=== PATIENT | male | born 1975 | race Caucasian/White ===

== ENCOUNTER 2017-04-26 00:19 | Emergency (ER) | payer SELFPAY ==
[~2017-04-26] VITALS: Ht 157.5 cm; Wt 66.0 kg
[2017-04-26 00:23] VITALS: Ht 157.5 cm; Wt 66.0 kg
== END 2017-04-26 00:42 | disposition left against medical advice (07) ==
LOC: E/R 00:19
DX: Z53.21 Procedure and treatment not carried out due to patient leaving prior to being seen by health care provider (principal)

== ENCOUNTER 2017-04-26 14:01 | Inpatient (IN) | payer MEDICAID ==
[~2017-04-26] VITALS: Ht 157.5 cm; Wt 63.9 kg
[2017-04-26] MEDS ORDERED: SOD CHLORIDE 0.9% 1,000 ML IV STA (14:36)
[2017-04-26] MEDS ORDERED: morphine 4 MG/ML VIAL IV STA (14:36)
[2017-04-26] MEDS ORDERED: ONDANSETRON 4 MG INJ IV STA (14:36)
[2017-04-26] MEDS ORDERED: LORAZEPAM 2 MG INJ IV ONE (15:00)
[2017-04-26 15:26] LABS: ADD SCAN DIFF NO
[2017-04-26 15:30] LABS: ABNORMAL IP MESSAGE 1; BASOPHIL # 0.1 10^3/ul (0.0-0.1); BASOPHILS % 1.5 % (0.0-2.0); EOSINOPHILS % 0.9 % (0.0-7.0); HEMATOCRIT 36.9 % (42.0-52.0); HEMOGLOBIN 12.5 g/dl (14.0-18.0); LYMPHOCYTES # 0.6 10^3/ul (0.8-2.9); LYMPHOCYTES % 17.4 % (15.0-51.0); MEAN CORPUSCULAR HEMOGLOBIN 29.3 pg (29.0-33.0); MEAN CORPUSCULAR HGB CONC 33.9 g/dl (32.0-37.0); MEAN CORPUSCULAR VOLUME 86.4 fl (82.0-101.0); MEAN PLATELET VOLUME 8.8 fl (7.4-10.4); MONOCYTE # 0.3 10^3/ul (0.3-0.9); MONOCYTES % 10.4 % (0.0-11.0); NEUTROPHIL # 2.3 10^3/ul (1.6-7.5); NEUTROPHILS % 69.5 % (39.0-77.0); PLATELET COUNT 131 10^3/UL (140-415); RED BLOOD COUNT 4.27 10^6/ul (4.70-6.10); WHITE BLOOD COUNT 3.3 10^3/ul (4.8-10.8)
[2017-04-26 15:49] LABS: ALBUMIN 5.2 g/dl (3.3-4.9); ALBUMIN/GLOBULIN RATIO 1.85; BILIRUBIN,INDIRECT 0.8 mg/dl (0-1.1); BILIRUBIN,TOTAL 0.8 mg/dl (0.2-1.3); CREATININE 0.69 mg/dl (0.61-1.24); POTASSIUM 3.8 mmol/L (3.5-5.1)
[2017-04-26] MEDS ORDERED: SOD CHLORIDE 0.9% 1,000 ML IV SCH (18:54)
[2017-04-26] MEDS ORDERED: ACETAMINOPHEN 325 MG TAB PO PRN ×2 (19:00→23:00)
[2017-04-26] MEDS ORDERED: ONDANSETRON 4 MG INJ IV PRN (19:00)
--- NOTE | 2017-04-26 19:02 | ERA ---
ER Documentation Chief Complaint Date/Time DATE: 04/26/17 TIME: 18:59 Chief Complaint etoh withdrawal, vomiting, shakes, last drink yesterda HPI Is a 41-year-old alcoholic male who is complaining of binge drinking hard for 3 weeks. The patient states that he began having nausea vomiting this morning. With pain in the epigastric region with some radiation to the back. He says he has not vomiting any bile or blood in the having the chest pain shortness of breath no fever having no diarrhea. ROS All systems reviewed and are negative except as per history of present illness. Medications Home Meds No Active Prescriptions or Reported Meds Allergies Allergies: Coded Allergies: No Known Allergy (Unverified , 04/26/17) PMhx/Soc History of Surgery: No Anesthesia Reaction: No Hx Neurological Disorder: No Hx Respiratory Disorders: No Hx Cardiac Disorders: Yes (HTN) Hx Psychiatric Problems: No Hx Miscellaneous Medical Probl: Yes (ETOH) Hx Alcohol Use: Yes Hx Substance Use: No Hx Tobacco Use: No Smoking Status: Never smoker FmHx Family History: No coronary disease Physical Exam Vitals Vital Signs Date Time Temp Pulse Resp B/P Pulse Ox O2 Delivery O2 Flow Rate FiO2 04/26/17 18:55 92 16 113/82 99 Room Air 04/26/17 17:15 70 12 121/82 99 Room Air 04/26/17 15:49 79 12 122/82 97 Room Air 04/26/17 14:03 98.1 137 18 134/76 99 Physical Exam Const: [Well-developed, well-nourished] Head: [Atraumatic, normocephalic] Eyes: [Normal Conjunctiva, PERRLA, EOMI, normal sclera, no nystagmus] ENT: [Normal External Ears, Nose and Mouth, moist mucus membranes.] Neck: [Full range of motion. No meningismus, no lymphadenopathy.] Resp: [Clear to auscultation bilaterally, no wheezing, rhonchi, rales] Cardio: [Tachycardia no murmurs, S1 S2 present] Abd: [Soft, mild to moderate epigastric tenderness, non distended. Normal bowel sounds, no guarding or rebound, no pulsitile abdominal masses or bruits] Skin: [No petechiae or rashes, no ecchymosis , no maculopapular rash] Back: [No midline or flank tenderness] Ext: [No cyanosis, or edema, FROM x 4, normal inspection, neurovascularly intact x 4] Neur: [Awake and alert, STR 5/5 x 4, sensation intact x 4, no focal findings, cerebellum intact, no tremors or signs of alcohol withdrawal] Psych: [Normal Mood and Affect] Result Diagram: 04/26/17 1445 04/26/17 1445 Results 24 hrs Laboratory Tests Test 04/26/17 14:45 White Blood Count 3.310^3/ul Red Blood Count 4.2710^6/ul Hemoglobin 12.5g/dl Hematocrit 36.9% Mean Corpuscular Volume 86.4fl Mean Corpuscular Hemoglobin 29.3pg Mean Corpuscular Hemoglobin Concent 33.9g/dl Red Cell Distribution Width 16.0% Platelet Count 28849^3/UL Mean Platelet Volume 8.8fl Neutrophils % 69.5% Lymphocytes % 17.4% Monocytes % 10.4% Eosinophils % 0.9% Basophils % 1.5% Nucleated Red Blood Cells % 0.0/100WBC Neutrophils # 2.310^3/ul Lymphocytes # 0.610^3/ul Monocytes # 0.310^3/ul Eosinophils # 0.010^3/ul Basophils # 0.110^3/ul Nucleated Red Blood Cells # 0.010^3/ul Sodium Level 144mmol/L Potassium Level 3.8mmol/L Chloride Level 101mmol/L Carbon Dioxide Level 23mmol/L Anion Gap 24 Blood Urea Nitrogen 8mg/dl Creatinine 0.69mg/dl Glucose Level 102mg/dl Calcium Level 9.0mg/dl Total Bilirubin 0.8mg/dl Direct Bilirubin 0.00mg/dl Indirect Bilirubin 0.8mg/dl Aspartate Amino Transf (AST/SGOT) 320IU/L Alanine Aminotransferase (ALT/SGPT) 177IU/L Alkaline Phosphatase 89IU/L Total Protein 8.0g/dl Albumin 5.2g/dl Globulin 2.80g/dl Albumin/Globulin Ratio 1.85 Lipase 1012U/L Ethyl Alcohol Level 193.0mg/dl Current Medications Medications (Trade) Dose Ordered Sig/Luisito Route PRN Reason Start Time Stop Time Status Last Admin Dose Admin Sodium Chloride (NS) 1,000 ml @ 1,000 mls/hr Q1H STAT IV 04/26/17 14:36 04/26/17 15:35 DC 04/26/17 15:03 Morphine Sulfate (morphine) 4 mg ONCE STAT IV 04/26/17 14:36 04/26/17 14:38 DC 04/26/17 15:03 Ondansetron HCl (Zofran Inj) 4 mg ONCE STAT IV 04/26/17 14:36 04/26/17 14:38 DC 04/26/17 15:04 Lorazepam 1 mg 1 mg ONCE ONCE IV 04/26/17 15:00 04/26/17 15:01 DC 04/26/17 15:03 Sodium Chloride (NS) 1,000 ml @ 80 mls/hr [id number] IV 04/26/17 18:54 04/27/17 07:23 Ondansetron HCl (Zofran Inj) 4 mg BRIDGE ORDER PRN IV NAUSEA AND/OR VOMITING 04/26/17 19:00 04/27/17 18:59 Acetaminophen (Tylenol Tab) 650 mg ER BRIDGE PRN PO MILD PAIN/FEVER 04/26/17 19:00 04/27/17 18:59 Procedures/MDM Patient's lipase is elevated at 1012. Will admit to the hospital for alcoholic pancreatitis she also has some mild elevation of liver function test. We will keep him n.p.o. and continue fluid resuscitation admit for observation Departure Diagnosis: Primary Impression: Alcoholic pancreatitis Qualified Code: K85.20 - Alcohol-induced acute pancreatitis, unspecified complication status Condition: Stable GORGE ABBASI DO Apr 26, 2017 19:02
[2017-04-26 22:30] VITALS: BP 138/85; PULSE 71; RESP 19
[2017-04-26 23:00] VITALS: Ht 157.5 cm; Wt 63.9 kg
[2017-04-26] MEDS ORDERED: NACL 0.9% 3 ML SYG IV SCH (23:00)
[2017-04-27] MEDS: ONDANSETRON 4 MG INJ IV PRN ×3 (00:08→18:01)
[2017-04-27] MEDS: SOD CHLORIDE 0.9% 1,000 ML IV SCH ×4 (00:08→18:02)
[2017-04-27 00:26] LABS: FOLATE 12.6 ng/ml (2.8-20.0)
[2017-04-27 02:03] VITALS: BP 137/92; RESP 70
[2017-04-27] MEDS: PANTOPRAZOLE 40 MG INJ IV SCH (05:05)
[2017-04-27] MEDS: HYDROmorphONE 1 MG/ML SYG IV PRN ×3 (05:07→22:01)
--- NOTE | 2017-04-27 06:17 | HP ---
Date/Time of Note Date/Time of Note DATE: 04/27/17 TIME: 06:04 Assessment/Plan VTE Prophylaxis VTE Prophylaxis Intervention: SCD's Lines/Catheters IV [facility]ter Type (from [facility]): Peripheral IV Urinary Cath still in place: No Assessment/Plan Chief Complaint/Hosp Course This is a 41-year-old male being admitted to the [facility] floor for: #1 Acute pancreatitis: Lipase was in the 1000s. Will provide bowel rest at this time and IV fluid hydration. Consider CT imaging of the abdomen pelvis if indicated. Trend lipase. #2 Alcohol abuse: Patient blood alcohol level was approximately 193. Patient has a history of binge drinking and heavy alcohol use. The current time will put patient on Ativan 1 mg every 6 hours as needed. Once patient can tolerate p.o. we will start patient on Librium. Monitor for symptoms of alcohol withdrawal. #3 Transaminitis: Likely secondary to alcohol. Will order hepatitis panel liver ultrasound. To further evaluate #4 DVT GI prophylaxis: SCDs, Protonix Further treatment strategy as per the clinical course Problems: HPI/ROS Admit Date/Time Admit Date/Time Apr 26, 2017 at 18:55 Hx of Present Illness Chief complaint: Abdominal pain nausea vomiting This is a 41-year-old alcoholic male who is complaining of binge drinking hard for 3 weeks. The patient states that he began having nausea vomiting this morning. With pain in the epigastric region with some radiation to the back. He says he is not vomiting any bile or blood in the having the chest pain shortness of breath no fever having no diarrhea. He states that he is experience pink otitis in the past as well Allergies: NKDA Medications: None ROS Const: Aspiration Eyes : No pain discharge or redness or change in visual acuity ENT: No pain, sore throat, congestion, congestion, dysphagia or discharge Respiratory: No shortness of breath, cough, sputum, wheezing, or pleuritic pain Cardiovascular: No chest pain, palpitation, PND, or edema GI : Aspiration Genitourinary: No dysuria, hematuria, flank pain , discharge or CVA tenderness Musculoskeletal: No joint pain, back pain, neck pain, restricted range of motion in neck or joints Skin: No rash, bruising or hives Neuro: No headache, dizziness, syncope, seizure, focal weakness Endocrine: No polyuria, polydipsia, temperature intolerance Psych: No hallucination, depression, anxiety or suicidal ideation PM/Family/Social Past Medical History Pancreatitis Past Surgical History Past Surgical Hx: no surgical history Family History Significant Family History: no pertinent family hx Social History Alcohol Use: heavy Smoking Status: Never smoker Drug Use: none Exam/Review of Systems Vital Signs Vitals Vital Signs Date Time Temp Pulse Resp B/P Pulse Ox O2 Delivery O2 Flow Rate FiO2 04/27/17 02:03 98.2 70 70 137/92 97 04/26/17 21:44 Room Air Intake and Output 04/26/17 04/26/17 04/27/17 15:00 23:00 07:00 Intake Total 625 ml Output Total 350 ml Balance -350 ml 625 ml Exam Exam General: Patient is a well-developed male who is laying in bed in mild distress , hacking with no active vomiting HEENT: Atraumatic, normocephalic. The pupils are equal, round and reactive. Extraocular motor are intact, mucous membranes dry Neck: Supple with full range of motion. No rigidity or meningismus Chest: Nontender Lungs: Clear to auscultation bilaterally no crackles rales or wheezing Heart: Normal S1-S2, Regular rhythm and rate. No murmur, S3, or S4 Abdomen: Soft, tenderness to palpation of the epigastric region, normal bowel sounds Extremities: Normal to inspection, no edema no cyanosis Neurologic: Normal mental status, speech normal, cranial nerves II through XII are intact, motor and sensory are intact, no focal weakness Psychiatry: No suicidal or homicidal ideation, no hallucinations Labs Result Diagram: 04/26/17 1445 04/26/17 1445 Medications Medications Current Medications Sodium Chloride (NS) 1,000 ml @ 125 mls/hr Q8H IV Last administered on 00:08; Admin Dose 125 MLS/HR; Start 04/26/17 at 22:49 Ondansetron HCl (Zofran Inj) 4 mg Q6H PRN IV NAUSEA AND/OR VOMITING Last administered on 04/27/17 00:08; Admin Dose 4 MG; Start 04/26/17 at 23:00 Acetaminophen (Tylenol Tab) 650 mg Q6H PRN PO PAIN LEVEL 1-3 OR FEVER; Start at 23:00 Hydromorphone HCl (Dilaudid) 0.5 mg Q4H PRN IV SEVERE PAIN LEVEL 7-10 Last administered on 04/27/17 05:07; Admin Dose 0.5 MG; Start 04/26/17 at 23:00 Pantoprazole 40 mg 40 mg DAILY@06 IV Last administered on 04/27/17 05:05; Admin Dose 40 MG; Start 04/27/17 at 06:00 Multivitamins/ Thiamine HCl/ Folic Acid/Sodium Chloride (Mvi Adult/ Vitamin B1/ Folic Acid/NS) 1,011.2 ml @ 125 mls/ hr DAILY@09 IVPB ; Start 04/27/17 at 09:00 Lorazepam (Ativan) 1 mg Q6H PRN IV AGITATION/ANXIETY; Start 04/26/17 at 23:00 LIZABETH BROWN Apr 27, 2017 06:14
[2017-04-27 06:24] LABS: ADD SCAN DIFF NO; HAAIG REFLEX REFLEX FILED
[2017-04-27 06:41] LABS: EOSINOPHILS % 0.5 % (0.0-7.0); HEMATOCRIT 35.4 % (42.0-52.0); HEMOGLOBIN 11.8 g/dl (14.0-18.0); LYMPHOCYTES # 0.7 10^3/ul (0.8-2.9); LYMPHOCYTES % 17.7 % (15.0-51.0); MEAN CORPUSCULAR HEMOGLOBIN 29.4 pg (29.0-33.0); MEAN CORPUSCULAR HGB CONC 33.3 g/dl (32.0-37.0); MEAN CORPUSCULAR VOLUME 88.3 fl (82.0-101.0); MEAN PLATELET VOLUME 9.5 fl (7.4-10.4); MONOCYTE # 0.5 10^3/ul (0.3-0.9); MONOCYTES % 11.6 % (0.0-11.0); NEUTROPHIL # 2.8 10^3/ul (1.6-7.5); PLATELET COUNT 130 10^3/UL (140-415); RED BLOOD COUNT 4.01 10^6/ul (4.70-6.10); RED CELL DISTRIBUTION WIDTH 15.9 % (11.5-14.5); WHITE BLOOD COUNT 4.1 10^3/ul (4.8-10.8)
[2017-04-27 06:46] LABS: ALBUMIN/GLOBULIN RATIO 2.08; BILIRUBIN,INDIRECT 1.4 mg/dl (0-1.1); BILIRUBIN,TOTAL 1.4 mg/dl (0.2-1.3); CALCIUM 9.3 mg/dl (8.4-10.2); CREATININE 0.65 mg/dl (0.61-1.24); TOTAL PROTEIN 7.4 g/dl (6.1-8.1)
[2017-04-27 06:57] LABS: CHOL/HDL RATIO 1.7 RATIO
[2017-04-27 07:25] VITALS: BP 157/88; RESP 20
--- NOTE | 2017-04-27 07:51 | RADRPT ---
PROCEDURE: US Abdomen (right upper quadrant). CLINICAL INDICATION: Liver disease. TECHNIQUE: Multiple real-time longitudinal and transverse images of the right upper quadrant of th e abdomen were acquired utilizing a curved array transducer. Images were reviewed on a high-resoluti on PACS workstation. COMPARISON: None FINDINGS: The liver is enlarged and diffusely increased in echogenicity. There is no focal hepatic lesion. Color Doppler and pulsed Doppler sonography demonstrate normal a ntegrade flow in the portal vein. The gallbladder is normal with no stones or wall thickening. There is no pericholecystic fluid zahra ection. The bile ducts are normal with the common bile duct measuring 5.4 mm in diameter. The visualized portions of the pancreas are unremarkable with obscuration of the tail of the pancrea s. No free fluid is present. The right kidney measures 10.4 cm. There is normal echogenicity of the right kidney. There is no perinephric fluid collection. No hydronephrosis, mass, or calculus is seen. IMPRESSION: 1. Hepatomegaly. 2. Fatty metamorphosis of the liver. 3. Otherwise normal right upper quadrant abdomen ultrasound. RPTAT: QQ .Gil Donato MD, Date Time Electronically viewed and signed by .Gil Donato MD, on 04/27/2017 07:50 .R/
[2017-04-27 07:59] LABS: THYROID STIMULATING HORMONE 1.85 MIU/L (0.465-4.680)
[2017-04-27] MEDS: MULTIVITAMINS 10 ML, THIAMINE 100 MG, FOLIC ACID 1 MG in SOD CHLORIDE 0.9% 1,000 ML IVPB SCH (09:13)
[2017-04-27] MEDS: LORAZEPAM 2 MG INJ IV PRN (09:14)
[2017-04-27 09:37] LABS: HEPATITIS B CORE ANTIBODY NEGATIVE (NEGATIVE)
[2017-04-27 14:15] VITALS: BP 150/82; RESP 18
[2017-04-27 20:51] VITALS: BP 139/87; RESP 21
[2017-04-28] MEDS: SOD CHLORIDE 0.9% 1,000 ML IV SCH ×4 (01:54→16:45)
[2017-04-28 02:38] VITALS: BP 129/60; RESP 21
[2017-04-28] MEDS: HYDROmorphONE 1 MG/ML SYG IV PRN ×3 (04:56→20:50)
[2017-04-28] MEDS: PANTOPRAZOLE 40 MG INJ IV SCH (05:00)
[2017-04-28 06:31] LABS: ADD SCAN DIFF NO
[2017-04-28 06:45] LABS: BASOPHILS % 0.7 % (0.0-2.0); EOSINOPHILS # 0.1 10^3/ul (0.0-0.5); EOSINOPHILS % 3.2 % (0.0-7.0); HEMATOCRIT 36.5 % (42.0-52.0); HEMOGLOBIN 11.9 g/dl (14.0-18.0); LYMPHOCYTES % 22.1 % (15.0-51.0); MEAN CORPUSCULAR HEMOGLOBIN 28.9 pg (29.0-33.0); MEAN CORPUSCULAR HGB CONC 32.6 g/dl (32.0-37.0); MEAN CORPUSCULAR VOLUME 88.6 fl (82.0-101.0); MEAN PLATELET VOLUME 10.1 fl (7.4-10.4); MONOCYTE # 0.6 10^3/ul (0.3-0.9); MONOCYTES % 13.9 % (0.0-11.0); NEUTROPHIL # 2.6 10^3/ul (1.6-7.5); NEUTROPHILS % 59.9 % (39.0-77.0); PLATELET COUNT 131 10^3/UL (140-415); RED BLOOD COUNT 4.12 10^6/ul (4.70-6.10); RED CELL DISTRIBUTION WIDTH 15.6 % (11.5-14.5); WHITE BLOOD COUNT 4.4 10^3/ul (4.8-10.8)
[2017-04-28 07:13] LABS: ALBUMIN 4.8 g/dl (3.3-4.9); ALBUMIN/GLOBULIN RATIO 1.92; BILIRUBIN,INDIRECT 1.2 mg/dl (0-1.1); BILIRUBIN,TOTAL 1.2 mg/dl (0.2-1.3); CALCIUM 9.3 mg/dl (8.4-10.2); CREATININE 0.57 mg/dl (0.61-1.24); POTASSIUM 3.3 mmol/L (3.5-5.1); TOTAL PROTEIN 7.3 g/dl (6.1-8.1)
[2017-04-28 07:29] LABS: MAGNESIUM 1.5 mg/dl (1.7-2.5); PHOSPHORUS 3.1 mg/dl (2.5-4.9)
[2017-04-28 08:19] VITALS: BP 142/99; RESP 19
[2017-04-28] MEDS: MULTIVITAMINS 10 ML, THIAMINE 100 MG, FOLIC ACID 1 MG in SOD CHLORIDE 0.9% 1,000 ML IVPB SCH (08:54)
[2017-04-28] MEDS: ONDANSETRON 4 MG INJ IV PRN (10:40)
[2017-04-28] MEDS ORDERED: MAGNESIUM SULFATE 2 GM/50 ML 50 ML IVPB SCH (11:30)
[2017-04-28] MEDS ORDERED: POTASSIUM CHLORIDE 30 MEQ in DEXTROSE 5% 250 ML IVPB SCH (12:00)
[2017-04-28] MEDS: LORAZEPAM 2 MG INJ IV PRN ×2 (14:20→21:50)
--- NOTE | 2017-04-28 14:36 | PN ---
Date/Time of Note Date/Time of Note DATE: 04/28/17 TIME: 14:33 Assessment/Plan VTE Prophylaxis VTE Prophylaxis Intervention: SCD's Lines/Catheters IV [facility]ter Type (from [facility]): Peripheral IV Urinary Cath still in place: No Assessment/Plan Chief Complaint/Hosp Course 1. Alcoholic pancreatitis. Continue to keep the patient n.p.o. Continue IV hydration. Continue pain control. 2. Alcoholism. The patient will be continued on a daily banana bag. He will also be continued on as needed Ativan for any alcohol withdrawal delirium. 3. Transaminitis. Most probably secondary to #1. Continue to monitor. Avoid hepatotoxic medications. 4. Positive hepatitis A antibody. Hepatitis A IgM nonreactive. 5. Normocytic, normochromic anemia. Etiology could be from underlying alcohol abuse. We will order an iron panel to evaluate for any underlying iron deficiency. 6. Fluids, electrolytes, and nutrition. N.p.o. IV fluids. 7. Gastrointestinal prophylaxis. Proton pump inhibitors. 8. DVT prophylaxis. Bilateral sequential compression devices. 9. Plan. Continue n.p.o. Continue to trend pancreatic enzyme levels. Replete potassium and magnesium. Start tapering dose of Librium. Case discussed with Dr. Umanzor. Problems: Subjective 24 Hr Interval Summary Free Text/Dictation The patient very anxious and actively hallucinating. Exam/Review of Systems Vital Signs Vitals Vital Signs Date Time Temp Pulse Resp B/P Pulse Ox O2 Delivery O2 Flow Rate FiO2 04/28/17 08:19 98.2 95 19 142/99 100 04/26/17 22:30 Room Air Intake and Output 04/27/17 04/27/17 04/28/17 15:00 23:00 07:00 Intake Total 375 ml 1350 ml Output Total 1150 ml 600 ml Balance 375 ml -1150 ml 750 ml Exam General: Adequately build 41 year-old male who looks a disabled lying in bed in no apparent distress. HEENT: Normocephalic, atraumatic. Eyes: Anicteric sclerae, conjunctivae clear. ENT: Nasal septum midline, oral mucosa moist. Neck supple, no JVD noticed. Respiratory: Bilaterally clear breath sounds. No use of accessory muscles of respiration. No adventitious breath sounds. Cardiovascular: S1, S2 heard. No murmurs or gallops. Abdomen: Soft and nondistended. Bowel sounds positive in all 4 quadrants. Diffuse tenderness. Genitourinary: Deferred. Extremities: No cyanosis, no clubbing, no edema. Peripheral pulses palpable. Neurologic: Cranial nerves II through XII grossly intact. The patient is awake, alert, and oriented. Skin: Normal skin turgor. No skin rashes. Psychologic: Anxious. Results Result Diagram: 04/28/17 0502 04/28/17 0502 Results 24 hrs Laboratory Tests Test 04/28/17 05:02 White Blood Count 4.4 L Red Blood Count 4.12 L Hemoglobin 11.9 L Hematocrit 36.5 L Mean Corpuscular Volume 88.6 Mean Corpuscular Hemoglobin 28.9 L Mean Corpuscular Hemoglobin Concent 32.6 Red Cell Distribution Width 15.6 H Platelet Count 131 L Mean Platelet Volume 10.1 Neutrophils % 59.9 Lymphocytes % 22.1 Monocytes % 13.9 H Eosinophils % 3.2 Basophils % 0.7 Nucleated Red Blood Cells % 0.0 Neutrophils # 2.6 Lymphocytes # 1.0 Monocytes # 0.6 Eosinophils # 0.1 Basophils # 0.0 Nucleated Red Blood Cells # 0.0 Sodium Level 136 Potassium Level 3.3 L Chloride Level 95 L Carbon Dioxide Level 21 Anion Gap 23 H Blood Urea Nitrogen 5 L Creatinine 0.57 L Glucose Level 72 Calcium Level 9.3 Phosphorus Level 3.1 Magnesium Level 1.5 L Total Bilirubin 1.2 Direct Bilirubin 0.00 Indirect Bilirubin 1.2 H Aspartate Amino Transf (AST/SGOT) 138 H Alanine Aminotransferase (ALT/SGPT) 129 H Alkaline Phosphatase 69 Total Protein 7.3 Albumin 4.8 Globulin 2.50 Albumin/Globulin Ratio 1.92 Amylase Level 322 H Lipase 1028 H Medications Medications Current Medications Sodium Chloride (NS) 1,000 ml @ 150 mls/hr Q6H40M IV Last administered on 04/28 01:54; Admin Dose 150 MLS/HR; Start 04/26/17 at 22:49 Ondansetron HCl (Zofran Inj) 4 mg Q6H PRN IV NAUSEA AND/OR VOMITING Last administered on 04/28/17 10:40; Admin Dose 4 MG; Start 04/26/17 at 23:00 Acetaminophen (Tylenol Tab) 650 mg Q6H PRN PO PAIN LEVEL 1-3 OR FEVER; Start at 23:00 Hydromorphone HCl (Dilaudid) 0.5 mg Q4H PRN IV SEVERE PAIN LEVEL 7-10 Last administered on 04/28/17 10:41; Admin Dose 0.5 MG; Start 04/26/17 at 23:00 Pantoprazole 40 mg 40 mg DAILY@06 IV Last administered on 04/28/17 05:00; Admin Dose 40 MG; Start 04/27/17 at 06:00 Multivitamins/ Thiamine HCl/ Folic Acid/Sodium Chloride (Mvi Adult/ Vitamin B1/ Folic Acid/NS) 1,011.2 ml @ 125 mls/ hr DAILY@09 IVPB Last administered on 08:54; Admin Dose 125 MLS/HR; Start 04/27/17 at 09:00 Lorazepam 1 mg 1 mg Q6H PRN IV AGITATION/ANXIETY Last administered on 14:20; Admin Dose 1 MG; Start 04/26/17 at 23:00 Potassium Chloride/Dextrose (KCl/D5W) 265 ml @ 88.333 mls/ hr ONCE IVPB Last administered on 04/28/17 14:13; Admin Dose 88.333 MLS/HR; Start 04/28/17 at 12: 00; Stop 04/28/17 at 14:59 SONIA VITALE NP Apr 28, 2017 14:36
[2017-04-28] MEDS: CHLORDIAZEPOXIDE 25 MG CAP PO SCH ×2 (15:14→20:00)
[2017-04-28 15:44] VITALS: BP 141/78; RESP 18
[2017-04-28 17:23] LABS: IRON 45 ug/dl (35-150)
[2017-04-28 17:33] LABS: TOTAL IRON BINDING CAPACITY 301 ug/dl (241-421)
[2017-04-28 20:00] VITALS: BP 140/87; PULSE 115; RESP 20
[2017-04-28] MEDS ORDERED: HALOPERIDOL 5 MG INJ IM ONE (23:00)
[2017-04-28] MEDS ORDERED: DIPHENHYDRAMINE 25 MG CAP PO ONE (23:00)
[2017-04-28] MEDS ORDERED: LORAZEPAM 2 MG INJ IV PRN (23:00)
--- NOTE | 2017-04-29 09:05 | DS ---
Date/Time of Note Date/Time of Note DATE: 04/29/17 TIME: 09:01 Discharge Summary Admission/Discharge Info Admit Date/Time Apr 26, 2017 at 23:38 Discharge Date/Time Apr 29, 2017 at 01:40 AGAINST MEDICAL ADVICE Discharge Diagnosis 1. Alcoholic pancreatitis. 2. Alcoholism. 3. Transaminitis. 4. Delirium tremens. Patient Condition: Fair Procedures Liver Ultrasound IMPRESSION: 1. Hepatomegaly. 2. Fatty metamorphosis of the liver. 3. Otherwise normal right upper quadrant abdomen ultrasound. Hx of Present Illness Chief complaint: Abdominal pain nausea vomiting This is a 41-year-old alcoholic male who was complaining of binge drinking hard for 3 weeks. The patient stated that he began having nausea and vomiting on the morning of the day of admission. With pain in the epigastric region with some radiation to the back. He denied vomiting any bile or blood in the having the chest pain shortness of breath no fever having no diarrhea. The patient had a lipase level of 1012. The patient was also noticed to underlying transaminitis. The patient's serum alcohol level was 193. Provided the patient 's history of present illness and the diagnostic findings, and clinical decision was made to admit the patient to inpatient setting to have him further evaluated. Allergies: NKDA Medications: None Hospital Course The patient was kept n.p.o. The patient was maintained on a aggressive IV fluids. There is over the patient's underlying pancreatitis is alcoholism. Patient had no evidence of any hypertriglyceridemia or cholelithiasis. The patient was maintained on daily banana bag and Librium taper for his underlying alcoholism. The patient was also maintained on as needed IV benzodiazepines for a acute episodes of alcohol withdrawal delirium. On 04/28/2017, the patient was noticed to be more confused and actively hallucinating. As the patient had a one-to-one sitter in place. Towards the night of 04/28/2017, the patient became more and more agitated. Therefore the hospital security was at the patient's bedside for controlling the situation. Patient pulled out his IV multiple times during the night of 04/28/2017. It was a very hard to control this patient even with the security director in place and a one-to-one sitter in place. 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 The patient did not sign the AGAINST MEDICAL ADVICE form. Patient was confused, by the able to walk out of the hospital. The patient left the hospital without IV access. [employer] was called and informed about the patient appears to be confused and leaving the hospital. No discharge planning was done since the patient left the hospital AGAINST MEDICAL ADVICE. Case discussed with Dr. Umanzor. Home Meds No Active Prescriptions or Reported Meds Follow-up Plan The patient left the hospital AGAINST MEDICAL ADVICE. Primary Care Provider Care Physician No Primary Time spent on discharge: < 30 minutes Pending Labs Laboratory Tests Test 04/28/17 16:08 Iron Level 45ug/dl (35-150) Total Iron Binding Capacity 301ug/dl (241-421) Percent Iron Saturation 15% SAT (22-52) Ferritin 85.2ng/ml (17.9-464.0) SONIA VITALE NP Apr 29, 2017 09:05
== END 2017-04-29 01:40 | disposition left against medical advice (07) | DRG 439 ==
LOC: E/R 14:01 → PP2 18:55 → OBSVTOIN 23:38
PROVIDERS: ADMIT Internal Medicine; ATTEND Internal Medicine
DX: K85.20 Alcohol induced acute pancreatitis without necrosis or infection (principal); F10.231 Alcohol dependence with withdrawal delirium; D64.9 Anemia, unspecified; Y90.6 Blood alcohol level of 120-199 mg/100 ml
CPT/HCPCS: 36415; 76705; 80053; 80061; 80306; 82150; 82607; 82728; 82746; 83036; 83540; 83690; 83735; 84100; 84425; 84443; 85025; 86704; 86706; 86708; 86709; 86803; 87081; 87340; 96374; 96375; G0378; C9113; J1170; J1630; J2060; J2270; J2405; J3411; J3475; J7030; J7070